=== PATIENT | male | born 1980 | race Caucasian/White ===

== ENCOUNTER → 2020-12-02 | Outpatient (CLI) | payer BC | LOC: RAD 11:36 | DX: M25.511 Pain in right shoulder (principal) | CPT/HCPCS: 73030 ==

== ENCOUNTER → 2021-01-16 | Outpatient (CLI) | payer BC | LOC: US 09:15 | DX: R74.01 Elevation of levels of liver transaminase levels (principal); K76.0 Fatty (change of) liver, not elsewhere classified; R93.2 Abnormal findings on diagnostic imaging of liver and biliary tract | CPT/HCPCS: 76705 ==

== ENCOUNTER → 2021-02-21 | Outpatient (CLI) | payer BC | LOC: NM 09:00 | DX: R10.11 Right upper quadrant pain (principal) | CPT/HCPCS: 78226; A9537 ==

== ENCOUNTER → 2021-03-15 | Outpatient (CLI) | payer BC | LOC: MRI 10:56 | DX: S43.431A Superior glenoid labrum lesion of right shoulder, initial encounter (principal) | CPT/HCPCS: 73221 ==

== ENCOUNTER → 2021-12-22 | Outpatient (CLI) | payer BC | LOC: EXRD 08:00 | DX: I10 Essential (primary) hypertension (principal) | CPT/HCPCS: 93975 ==